=== PATIENT | male | born 1960 | race Two or more races ===

== ENCOUNTER 2020-12-07 14:00 | Inpatient (IN) | payer BC, MEDICAID ==
[~2020-12-07] VITALS: Ht 172.7 cm; Wt 95.3 kg
[2020-12-07] MEDS ORDERED: CEFTRIAXONE 1 G in IV DEXTROSE 5% 50 ML IV ONE (15:00)
[2020-12-07] MEDS ORDERED: ACETAMINOPHEN ES 500 MG TABLET PO ONE (15:00)
[2020-12-07] MEDS ORDERED: DEXAMETHASONE SOD PHOSPHATE 4 MG INJ IV ONE (15:00)
[2020-12-07] MEDS ORDERED: IV NORMAL SALINE 1000 ML BAG IV ONE (15:00)
[2020-12-07 15:21] LABS: HEMATOCRIT 38.4 % (36.7-47.1); MEAN CORPUSCULAR HEMOGLOBIN 35.1 uug (23.8-33.4); MEAN CORPUSCULAR VOLUME 100.3 fL (73.0-96.2); PLATELET COUNT (AUTO) 194 K/uL (152-348)
[2020-12-07] MEDS ORDERED: ACETAMINOPHEN 325 MG TABLET ONE (15:22)
[2020-12-07] MEDS ORDERED: DEXAMETHASONE SOD PHOSPHATE 10 MG INJ ONE (15:22)
[2020-12-07] MEDS ORDERED: CEFTRIAXONE /D5W 50ML IVPB **ER PYXIS IV ONE (15:22)
[2020-12-07 15:53] LABS: CREATININE 1.4 mg/dL (0.6-1.3); POTASSIUM 3.9 mmol/L (3.5-5.1)
[2020-12-07 15:59] LABS: BILIRUBIN,TOTAL 0.6 mg/dL (0.2-1.0); TOTAL PROTEIN, SERUM 8.2 g/dL (6.4-8.2)
[2020-12-07] MEDS ORDERED: ALBU0.63 IH (16:00)
[2020-12-07] MEDS ORDERED: PRED20TA PO (16:00)
[2020-12-07] MEDS ORDERED: MAGNESIUM HYDROXIDE 30 ML LIQUID UDC PO PRN (17:00)
[2020-12-07] MEDS ORDERED: Z GUARD REMEDY PASTE 57 GM TUBE TOP PRN (17:00)
[2020-12-07] MEDS ORDERED: ONDANSETRON 4 MG/2 ML VIAL IV PRN (17:00)
[2020-12-07] MEDS ORDERED: ALBUTEROL SULFATE 8 GM HFA.AER.AD IH PRN (17:00)
--- NOTE | 2020-12-07 17:30 | NUR ---
PT [facility].
[2020-12-07 18:02] LABS: *BILIRUBIN,URIN NEGATIVE (NEGATIVE); *BLOOD, URINE 2+ (NEGATIVE); *CLARITY,URINE CLEAR (CLEAR); *COLOR,URINE YELLOW (YELLOW); *KETONES,URINE NEGATIVE (NEGATIVE); *UROBILINOGEN,URINE 0.2 E.U./dl (NORMAL); LEUKOCYTE ESTERASE ,URINE NEGATIVE (NEGATIVE); NITRITE, URINE NEGATIVE (NEGATIVE); UGLUCOSE NEGATIVE (NEGATIVE)
[2020-12-07 18:05] LABS: BACTERIA,URINE NONE SEEN /HPF (NONE SEEN)
[2020-12-07 18:06] LABS: SQUAMOUS EPITHELIAL CELL,UR FEW /HPF (NONE SEEN)
--- NOTE | 2020-12-07 20:14 | NUR ---
Called up to give report, floor is busy will call back.
[2020-12-07 21:20] VITALS: BP 125/77
[2020-12-07] MEDS: ACETAMINOPHEN 325 MG TABLET PO PRN (22:04)
[2020-12-07] MEDS: ENOXAPARIN SODIUM 40 MG/0.4 ML DISP.SYRIN SQ SCH (22:05)
[2020-12-07] MEDS: ENSURE ENLIVE (VAN) 240 ML LIQUID PO SCH (22:10)
[2020-12-08 04:45] VITALS: BP 137/76
--- NOTE | 2020-12-08 04:46 | NUR ---
Admitted to room 322; admission procedures done; pt will have Remdesivir today; Patient rested well in between care; VSS; Tylenol given last night; safety maintained; afebrile at this akila; needs attended; continue to monitor; continue plan of care.
[2020-12-08 06:49] LABS: HEMATOCRIT 37.7 % (36.7-47.1); MEAN CORPUSCULAR VOLUME 101.6 fL (73.0-96.2); PLATELET COUNT (AUTO) 188 K/uL (152-348)
[2020-12-08 07:13] LABS: CREATININE 1.1 mg/dL (0.6-1.3); POTASSIUM 4.2 mmol/L (3.5-5.1)
[2020-12-08] MEDS: ACETAMINOPHEN 325 MG TABLET PO PRN ×2 (07:16→20:25)
[2020-12-08] MEDS: ENSURE ENLIVE (VAN) 240 ML LIQUID PO SCH ×3 (08:38→17:38)
[2020-12-08] MEDS ORDERED: DEXAMETHASONE SOD PHOSPHATE 4 MG INJ IV SCH (09:00)
[2020-12-08 09:03] VITALS: BP 96/50
--- NOTE | 2020-12-08 09:53 | NUR ---
Received patient resting quietly in his assigned bed. Bed is in low and locked position. Patient is alert and oriented, cooperative, and complaint. Patient is receiving 5 L oxygen via NC, saturating at 96%. Patient took off his NC because he stated it was bothering him, and oxygen saturation dropped to 91%. Patient instructed to keep nasal cannula on to prevent sudden drops in oxygen saturation, verbalizes understanding. Patient denies productive cough, chest pain, SOB, and dyspnea. Respirations are even and unlabored, no respiratory distress noted. Patient is complaint with medication, no adverse reaction. Patient noted with normal SR on the tele monitor. Patient is able to perform self care and ADL's independently. Able to tolerate food and fluids, patient reports good appetite. Denies pain or discomfort. Denies nausea, headache, vomiting. Patient provided with urinal to void. Denies hematuria.
[2020-12-08 12:00] VITALS: BP 112/67
[2020-12-08] MEDS ORDERED: REMDESIVIR (CHARGED) 200 MG in IV NORMAL SALINE 210 ML IV ONE (12:00)
[2020-12-08] MEDS: ASPIRIN 81 MG TAB.CHEW PO SCH (12:23)
[2020-12-08] MEDS ORDERED: CEFTRIAXONE 1 G in IV DEXTROSE 5% 50 ML IV SCH (15:00)
[2020-12-08 16:00] VITALS: BP 116/65
--- NOTE | 2020-12-08 16:28 | NUR ---
Patient reported that after receiving the IV Remdesevir he feels hot. IV Remdesevir disconnected from patient and temperature taken. Temperature is 98.1 oral. Patient is alert and oriented. Patient refusing IV Rocephin, he states he would rather not receive the medication incase he feels worse. Patient provided with education about possible side effects from medications, and he continues to refuse.
--- NOTE | 2020-12-08 20:00 | NUR ---
Received patient lying in bed. AAOx4. Denies any SOB. On O2 at 5LPM via NC in place. O2 sat at 93% on RA. Sinus tachy on tele with HR of 118/min. IV site on left AC intact and patent. Patient with temp of 102.4 orally. Cooling measure provided. Will give Tylenol 650mg PO as well. Needs assessed and attended to. COVID precaution initiated. Safety measure initiated and call workman within reached. Continue to monitor.
[2020-12-08] MEDS: ATORVASTATIN 20 MG TABLET PO SCH (20:25)
[2020-12-08] MEDS: ENOXAPARIN SODIUM 40 MG/0.4 ML DISP.SYRIN SQ SCH (20:26)
[2020-12-08 20:29] VITALS: BP 130/75
--- NOTE | 2020-12-09 | NUR ---
Latest temp 100.0 orally. Continue with cooling measures.
[2020-12-09 00:56] VITALS: BP 103/64
[2020-12-09] MEDS: ACETAMINOPHEN 325 MG TABLET PO PRN ×2 (02:16→12:22)
[2020-12-09 04:39] VITALS: BP 111/70
--- NOTE | 2020-12-09 06:00 | NUR ---
AAOx4. Denies any pain or SOB. On O2 at 5LPM via NC in place. O2 sat at 93% on RA. NSR on tele with HR of 73/min. IV site on left AC intact and patent. Was given Tylenol 650mg q6HR PRN for fever and effective. Cooling measures also provided. Now afebrile. Needs attended to and met. COVID precaution maintained. Safety measure maintained and call workman within reached.
[2020-12-09 07:29] LABS: HEMATOCRIT 39.8 % (36.7-47.1); MEAN CORPUSCULAR HEMOGLOBIN 34.9 uug (23.8-33.4); MEAN CORPUSCULAR VOLUME 101.5 fL (73.0-96.2); PLATELET COUNT (AUTO) 215 K/uL (152-348)
[2020-12-09 07:54] LABS: BILIRUBIN,DIRECT 0.3 mg/dL (0.0-0.2); CREATININE 1.2 mg/dL (0.6-1.3); POTASSIUM 3.9 mmol/L (3.5-5.1); TOTAL PROTEIN, SERUM 8.3 g/dL (6.4-8.2)
[2020-12-09 08:00] VITALS: BP 103/63
[2020-12-09] MEDS: ASPIRIN 81 MG TAB.CHEW PO SCH (09:38)
[2020-12-09] MEDS: ENSURE ENLIVE (VAN) 240 ML LIQUID PO SCH ×3 (09:39→17:18)
[2020-12-09] MEDS: DEXAMETHASONE SOD PHOSPHATE 4 MG INJ IV SCH ×3 (09:39→21:01)
[2020-12-09 12:00] VITALS: BP 121/77
[2020-12-09] MEDS: CEFEPIME HCL 1 G in IV DEXTROSE 5% 50 ML IV SCH ×3 (12:20→20:16)
[2020-12-09] MEDS: REMDESIVIR (CHARGED) 100 MG in IV NORMAL SALINE 100 ML IV SCH (12:20)
[2020-12-09] MEDS: DOXYCYCLINE HYCLATE IV 100 MG in IV DEXTROSE 5% 100 ML IV SCH ×2 (12:21→23:02)
[2020-12-09] MEDS ORDERED: IV NS 1000 ML 1,000 ML IV ONE (15:30)
--- NOTE | 2020-12-09 19:30 | NUR ---
Received patient sitting upright in bed. AAOx4. Denies any pain or SOB. On O2 at 5LPM via NC in place. O2 sat at 90%. NSR on tele with HR of 89/min. IV site on left AC noted leaking/ started new IV on left hand #[id number]. Afebrile at this time. Needs assessed and attended to. COVID precaution initiated. Safety measure initiated and call workman within reached. Continue to monitor.
[2020-12-09] MEDS: ENOXAPARIN SODIUM 40 MG/0.4 ML DISP.SYRIN SQ SCH (20:16)
[2020-12-09] MEDS: ATORVASTATIN 20 MG TABLET PO SCH (20:16)
[2020-12-09 21:09] VITALS: BP 109/70
--- NOTE | 2020-12-09 23:22 | NUR ---
Patient complained of mild SOB. On 5LPM via NC of O2, O2 sat fluctuating bet 87-89%. Titrated O2 at 6LPM via NC. O2 sat fluctuating between 89-91%. Patient felt relief. HOB kept elevated. Informed RT Dez.
[2020-12-10 00:52] VITALS: BP 116/66
[2020-12-10] MEDS: CEFEPIME HCL 1 G in IV DEXTROSE 5% 50 ML IV SCH ×3 (04:43→20:21)
[2020-12-10] MEDS: DEXAMETHASONE SOD PHOSPHATE 4 MG INJ IV SCH ×3 (05:01→21:04)
--- NOTE | 2020-12-10 06:43 | NUR ---
AAOx4. No complain of any pain or SOB. On O2 at 6LPM via NC in place. O2 sat at 90%. Sinus zoltan on tele with HR of 59/min. IV site on left hand intact and patent NO adverse reaction noted from IV antibiotics. Needs attended to and met. COVID precaution maintained. Safety measure maintained and call workman within reached.
[2020-12-10 07:05] LABS: HEMATOCRIT 38.3 % (36.7-47.1); MEAN CORPUSCULAR HEMOGLOBIN 34.6 uug (23.8-33.4); MEAN CORPUSCULAR VOLUME 103.3 fL (73.0-96.2); PLATELET COUNT (AUTO) 214 K/uL (152-348)
[2020-12-10 08:14] LABS: BILIRUBIN,DIRECT 0.2 mg/dL (0.0-0.2); BILIRUBIN,TOTAL 0.7 mg/dL (0.2-1.0); POTASSIUM 4.3 mmol/L (3.5-5.1); TOTAL PROTEIN, SERUM 7.4 g/dL (6.4-8.2)
[2020-12-10 09:00] VITALS: BP 104/54
[2020-12-10] MEDS: ENSURE ENLIVE (VAN) 240 ML LIQUID PO SCH ×3 (09:19→17:00)
[2020-12-10] MEDS: ASPIRIN 81 MG TAB.CHEW PO SCH (09:20)
[2020-12-10] MEDS: DOXYCYCLINE HYCLATE IV 100 MG in IV DEXTROSE 5% 100 ML IV SCH ×2 (11:57→23:00)
[2020-12-10 12:00] VITALS: BP 115/78
[2020-12-10] MEDS: REMDESIVIR (CHARGED) 100 MG in IV NORMAL SALINE 100 ML IV SCH (12:46)
[2020-12-10 17:12] VITALS: BP 116/58
--- NOTE | 2020-12-10 19:30 | NUR ---
Received patient sitting upright in bed. AAOx4. Denies any pain or SOB at this time. On O2 at 6LPM via NC in place. O2 sat at 96%. NSR on tele with HR of 76/min. IV site on left hand intact and patent. Afebrile. Needs assessed and attended to. COVID precaution initiated. Safety measure initiated and call workman within reached. Continue to monitor.
[2020-12-10] MEDS: ATORVASTATIN 20 MG TABLET PO SCH (20:21)
[2020-12-10] MEDS: ENOXAPARIN SODIUM 40 MG/0.4 ML DISP.SYRIN SQ SCH (20:21)
[2020-12-10 20:30] VITALS: BP 103/45
[2020-12-11 00:19] VITALS: BP 107/52
[2020-12-11 04:20] VITALS: BP 147/73
[2020-12-11] MEDS: CEFEPIME HCL 1 G in IV DEXTROSE 5% 50 ML IV SCH ×3 (04:27→20:37)
[2020-12-11] MEDS: DEXAMETHASONE SOD PHOSPHATE 4 MG INJ IV SCH ×3 (05:53→21:12)
--- NOTE | 2020-12-11 06:26 | NUR ---
AAOx4. Denies any pain or SOB at this time. On O2 at 6LPM via NC in place. O2 sat at 99%. Sinus zoltan on tele with HR of 55/min. IV site on left hand intact and patent. NO side effect noted from IV antibiotics. Needs attended to and met. COVID precaution maintained. Safety measure maintained and call workman within reached.
[2020-12-11 07:35] LABS: MEAN CORPUSCULAR HEMOGLOBIN 34.4 uug (23.8-33.4); MEAN CORPUSCULAR VOLUME 101.6 fL (73.0-96.2); PLATELET COUNT (AUTO) 297 K/uL (152-348)
[2020-12-11] MEDS: ASPIRIN 81 MG TAB.CHEW PO SCH (08:09)
[2020-12-11] MEDS: ENSURE ENLIVE (VAN) 240 ML LIQUID PO SCH ×3 (08:09→16:38)
[2020-12-11 08:33] LABS: BILIRUBIN,DIRECT 0.2 mg/dL (0.0-0.2); BILIRUBIN,TOTAL 0.7 mg/dL (0.2-1.0); POTASSIUM 4.4 mmol/L (3.5-5.1); TOTAL PROTEIN, SERUM 7.5 g/dL (6.4-8.2)
[2020-12-11] MEDS: REMDESIVIR (CHARGED) 100 MG in IV NORMAL SALINE 100 ML IV SCH (11:45)
[2020-12-11 12:00] VITALS: BP 113/65
[2020-12-11] MEDS: DOXYCYCLINE HYCLATE IV 100 MG in IV DEXTROSE 5% 100 ML IV SCH ×2 (13:02→23:08)
[2020-12-11 16:00] VITALS: BP 105/66
--- NOTE | 2020-12-11 20:23 | NUR ---
Patient AAOx4. On O2 at 6LPM via NC in place.SAting well. No s/ of distress noted.Sinus zoltan on tele with HR of 58/min. Patient c/o pain on IV site on left hand .Noted infiltrated.Removed and inserted new line on left wrist using 22 g .Tolerated well .Infused IV ATb as ordered .No a/r noted.COVID precaution maintained.Call workman within reached.
[2020-12-11] MEDS: ATORVASTATIN 20 MG TABLET PO SCH (20:37)
[2020-12-11 20:49] VITALS: BP 114/64
[2020-12-11] MEDS: ENOXAPARIN SODIUM 40 MG/0.4 ML DISP.SYRIN SQ SCH (21:17)
[2020-12-12] VITALS (7 sets, daily range): BP systolic 105–130; BP diastolic 62–69
--- NOTE | 2020-12-12 02:01 | NUR ---
Patient awake sitting upright in bed not in distress but c/o nasal congestion.O2 at 6LPM via NC at 95%.Humidier applied with relief.No coughing at this time.Denies SOB.HOB elevated. Afebrile.Will continue to monitor.
[2020-12-12] MEDS: CEFEPIME HCL 1 G in IV DEXTROSE 5% 50 ML IV SCH ×3 (04:58→20:22)
[2020-12-12] MEDS: DEXAMETHASONE SOD PHOSPHATE 4 MG INJ IV SCH ×3 (05:37→21:10)
--- NOTE | 2020-12-12 06:12 | NUR ---
Patient noted O2 sat went to 87-89 % no used of accessory muscles of respiration .Placed patient to non breather mask at 14 LPM sating at 95 % still with episodes of nasal congestion.towboat operator made aware of patient complaints regarding nasal congestion. Will continue to monitor.HOB remained elevated. Reminded patient to used call light for assistance.
--- NOTE | 2020-12-12 07:01 | NUR ---
Patient slept intermittently on non breather mask at 14 LPM 94%- 95 % .NSr on tele.Iv on left wrist patent and intact. VSS .All needs anticipated and met accordingly. will endorse to oncoming shift.
--- NOTE | 2020-12-12 08:00 | NUR ---
received change of shift report on patient. pt a/ox4, c/o SOB, on 14L nonrebreather saturating at 94%, no signs of distress, no reports of pain at this time. pt BRP, voiding via urinal at bedside. IV on the left wrist 22g, patent and intact. pt unvaccinated, cxr shows bifocal pulmonary infiltrates. will continue with plan of care.
[2020-12-12 08:26] LABS: HEMATOCRIT 39.2 % (36.7-47.1); PLATELET COUNT (AUTO) 349 K/uL (152-348)
[2020-12-12 08:40] LABS: BILIRUBIN,DIRECT 0.3 mg/dL (0.0-0.2); BILIRUBIN,TOTAL 0.7 mg/dL (0.2-1.0); POTASSIUM 4.2 mmol/L (3.5-5.1); TOTAL PROTEIN, SERUM 7.8 g/dL (6.4-8.2)
[2020-12-12] MEDS: ENSURE ENLIVE (VAN) 240 ML LIQUID PO SCH ×3 (08:53→17:52)
[2020-12-12] MEDS: ASPIRIN 81 MG TAB.CHEW PO SCH (08:53)
[2020-12-12] MEDS: DOXYCYCLINE HYCLATE IV 100 MG in IV DEXTROSE 5% 100 ML IV SCH ×2 (11:02→23:16)
--- NOTE | 2020-12-12 12:00 | NUR ---
ocean nasal spray ordered for pt for nasal congestion.
[2020-12-12] MEDS: REMDESIVIR (CHARGED) 100 MG in IV NORMAL SALINE 100 ML IV SCH (12:42)
[2020-12-12] MEDS: NORMAL SALINE NASAL 45 ML BOTTLE NS PRN ×2 (12:44→23:37)
[2020-12-12] MEDS ORDERED: TOCILIZUMAB 800 MG in IV NORMAL SALINE 60 ML IV ONE ×2 (13:00→14:00)
--- NOTE | 2020-12-12 13:30 | NUR ---
pt started on actemra, pt on 14L nonrebreather saturating at 94%. see by Dr. Hall.
--- NOTE | 2020-12-12 18:54 | NUR ---
pt in bed resting, a/ox4, pt NSR on tele monitor, nonrebreather at 14L saturating at 92%. pt BRP, voiding via urinal. completed course of remdesivir 05/16, started on Actemra, will endorse to oncoming nurse.
--- NOTE | 2020-12-12 20:14 | NUR ---
Patient in bed. A/ox4, NSR on tele monitor, c/o SOB on nonrebreather at 14L saturating at 96%.Noted with little of anxiety.Re-assurance rendered.s/p Actemra,No a/r noted. N.p Nera seen and patient.Adm med. and IV ATB as ordered. IV patent and intact on left hand. Call light with in reach.
[2020-12-12] MEDS: ATORVASTATIN 20 MG TABLET PO SCH (20:22)
[2020-12-12] MEDS: ENOXAPARIN SODIUM 40 MG/0.4 ML DISP.SYRIN SQ SCH (20:24)
[2020-12-13 04:27] VITALS: BP 109/61
[2020-12-13] MEDS: CEFEPIME HCL 1 G in IV DEXTROSE 5% 50 ML IV SCH ×3 (04:59→20:23)
[2020-12-13] MEDS: DEXAMETHASONE SOD PHOSPHATE 4 MG INJ IV SCH ×3 (05:01→22:01)
[2020-12-13 06:54] LABS: HEMATOCRIT 39.7 % (36.7-47.1); MEAN CORPUSCULAR HEMOGLOBIN 34.6 uug (23.8-33.4); MEAN CORPUSCULAR VOLUME 101.3 fL (73.0-96.2); PLATELET COUNT (AUTO) 358 K/uL (152-348); POTASSIUM 4.6 mmol/L (3.5-5.1)
[2020-12-13 09:00] VITALS: BP 124/64
[2020-12-13] MEDS: ASPIRIN 81 MG TAB.CHEW PO SCH (10:08)
[2020-12-13] MEDS: ENSURE ENLIVE (VAN) 240 ML LIQUID PO SCH ×3 (10:09→17:30)
[2020-12-13 11:30] VITALS: BP 124/64
[2020-12-13] MEDS: DOXYCYCLINE HYCLATE IV 100 MG in IV DEXTROSE 5% 100 ML IV SCH (11:40)
[2020-12-13 15:23] VITALS: BP 127/71
--- NOTE | 2020-12-13 18:35 | NUR ---
Pt stable throughout the shift. NSR on tele monitor. C/o nasal stuffiness, but nasal spray is on the bedside available PRN. Pt states its not helping it. MD aware. Pt can ambulate to the room without any distress. Safety measures in place. Fall and isolation precaution maintained. Continue with abx, cardiac and respiratory monitoring. Will endorse to warehouse worker 2nd shift nurse.
[2020-12-13] MEDS: ATORVASTATIN 20 MG TABLET PO SCH (20:23)
[2020-12-13] MEDS: ENOXAPARIN SODIUM 40 MG/0.4 ML DISP.SYRIN SQ SCH (20:27)
[2020-12-13 20:30] VITALS: BP 102/66
--- NOTE | 2020-12-13 21:15 | NUR ---
Patient stated he has has severe nasal congestion for several days no and nobody had been able to resolve it. Nasal spray has been ineffective. Steam has been ineffective. Inspected the patient's nasal passages, noted thick mucous occluding the nasal passages. Attempted suctioning with a Yankauer, but the mucous was too thick. I then irrigated both nasal passages with saline flushes, which had an immediate effect and the patient was able to blow his nose expelling a large amount of dark brown thick mucous. Irrigation repeated several times until he stated his nose was clear. patient felt immediate relief and was able to breath much easier. Patient did not even feel the need to use the non-rebreather anymore. Placed back on the nasal cannula with O2 SAT remaining 99% on 6L.
--- NOTE | 2020-12-13 21:20 | NUR ---
Received patient A/O x4, c/o slight SOB stating his nasal passages are occluded making it more difficult to breathe, on 15L nonrebreather saturating at 94%, no signs of distress, no reports of pain at this time. Patient on bathroom privileges but has bedside commode for convenience and ease, voiding via urinal at bedside. IV on the left wrist 22g, patent and intact.
--- NOTE | 2020-12-13 22:41 | NUR ---
Patient sleeping well, remains on 6L via nasal cannula, SAT 99%
[2020-12-14] MEDS: DOXYCYCLINE HYCLATE IV 100 MG in IV DEXTROSE 5% 100 ML IV SCH ×3 (00:02→23:33)
[2020-12-14 00:08] VITALS: BP 90/47
[2020-12-14 04:27] VITALS: BP 97/55
[2020-12-14] MEDS: CEFEPIME HCL 1 G in IV DEXTROSE 5% 50 ML IV SCH ×3 (05:12→21:51)
[2020-12-14] MEDS: DEXAMETHASONE SOD PHOSPHATE 4 MG INJ IV SCH ×3 (05:12→21:52)
--- NOTE | 2020-12-14 06:23 | NUR ---
Patient remains in stable condition, A/O x3. Patient remains SR on the monitor, BP stable, remains on 6L nasal cannula, o2 saturation monitored frequently 95-99% throughout the shift, no SOB or signs of distress. Patient's nasal congestion resolved, using 10mL saline flushes to soften mucous to make it easier to expel. The saline nasal spray was insufficient in loosening up the mucous clogging his nasal passages. Patient was able to sleep very well. IV in the left wrist did infiltrate during the night causing marked edema in the forearm and hand, no discoloration noted. New IV was placed in the right AC.
[2020-12-14 07:40] LABS: HEMATOCRIT 42.6 % (36.7-47.1); MEAN CORPUSCULAR HEMOGLOBIN 34.2 uug (23.8-33.4); MEAN CORPUSCULAR VOLUME 101.8 fL (73.0-96.2); PLATELET COUNT (AUTO) 371 K/uL (152-348)
--- NOTE | 2020-12-14 08:00 | NUR ---
PATIENT AWAKE ALERT AND ORIENTED X3 WITH SLIGHT SOB ON EXERTION WITH 6L O2 VIA NC SATURATING 86-87 % SITTING UP ON SIDE OF BED. SR ON MONITOR
[2020-12-14] MEDS: ASPIRIN 81 MG TAB.CHEW PO SCH (08:10)
[2020-12-14] MEDS: ENSURE ENLIVE (VAN) 240 ML LIQUID PO SCH ×3 (08:10→17:14)
[2020-12-14 08:34] LABS: BILIRUBIN,DIRECT 0.3 mg/dL (0.0-0.2); MAGNESIUM 2.8 mg/dL (1.8-2.4); PHOSPHOROUS 3.6 mg/dL (2.5-4.9); POTASSIUM 4.5 mmol/L (3.5-5.1); TOTAL PROTEIN, SERUM 7.8 g/dL (6.4-8.2)
[2020-12-14 09:58] LABS: ABG BASE EXCESS 0.3 mmol/L; ABG HCO3 21.9 mmol/L; ABG PCO2 28.1 mmHg (35.0-45.0); ABG PO2 54.6 mmHg (75.0-100.0); ABG SITE RIGHT RADIAL; ABG TOTAL HEMOGLOBIN 15.6 G/dL (13.5-18.0); COHb 0.8 % (0.5-1.5); MetHb 0.2 % (0.0-1.5); O2Hb 87.7 % (94.0-97.0); VENT MODE Nasal Cannula
--- NOTE | 2020-12-14 11:00 | NUR ---
SEEN BY DR SOLOMON FOR PULMO FOLLOW-UP. RECOMMEND TITRATION OF O2 TOLERATED. ABG DONE WITH RESULTS RELAYED TO DR SOLOMON.
[2020-12-14 12:00] VITALS: BP 112/73
[2020-12-14 16:00] VITALS: BP 123/63
--- NOTE | 2020-12-14 19:20 | NUR ---
Received shift report, patient in bed with 6L NC humidifier on. Sinus bradycardia on telemonitor. IV intact and patent. Patient denies any pain or discomfort. Will continue to monitor.
[2020-12-14 20:28] VITALS: BP 116/20
[2020-12-14] MEDS: ATORVASTATIN 20 MG TABLET PO SCH (21:51)
[2020-12-14] MEDS: ENOXAPARIN SODIUM 40 MG/0.4 ML DISP.SYRIN SQ SCH (21:56)
[2020-12-15 00:15] VITALS: BP 120/75
[2020-12-15 04:56] VITALS: BP 121/55
[2020-12-15] MEDS: DEXAMETHASONE SOD PHOSPHATE 4 MG INJ IV SCH ×3 (05:22→21:57)
[2020-12-15] MEDS: CEFEPIME HCL 1 G in IV DEXTROSE 5% 50 ML IV SCH (05:23)
--- NOTE | 2020-12-15 06:11 | NUR ---
Patient resting on 6L NC humidifier on. Patient IV dislodged. New IV inserted on right hand 22g. Patient compliant with medications and care, no signs of acute distress. Call lights within reach, bed alarm on, and bed locked in lowest position. Will endorse to incoming shift.
[2020-12-15 08:33] LABS: HEMATOCRIT 42.6 % (36.7-47.1); MEAN CORPUSCULAR HEMOGLOBIN 34.7 uug (23.8-33.4); MEAN CORPUSCULAR VOLUME 101.1 fL (73.0-96.2); PLATELET COUNT (AUTO) 365 K/uL (152-348)
[2020-12-15 08:59] LABS: THYROID STIMULATING HORMONE 0.445 mIU/mL (0.358-3.740)
[2020-12-15] MEDS: ENSURE ENLIVE (VAN) 240 ML LIQUID PO SCH ×2 (08:59→13:13)
[2020-12-15] MEDS: ASPIRIN 81 MG TAB.CHEW PO SCH (08:59)
[2020-12-15 09:15] LABS: CREATININE 0.9 mg/dL (0.6-1.3); MAGNESIUM 2.8 mg/dL (1.8-2.4); PHOSPHOROUS 3.7 mg/dL (2.5-4.9); POTASSIUM 4.6 mmol/L (3.5-5.1); TOTAL PROTEIN, SERUM 7.7 g/dL (6.4-8.2)
--- NOTE | 2020-12-15 09:28 | NUR ---
received pt in bed awake and oriented x4 and seems a bit upset about his condition. received on 10 lpm simple facemask resting in bed. denies sob/difficulty breathing o2 sat 94-95% but noted with sob on exertion. at this time dr davies rounding and updated on condition. will cont to monitor. safety measures in place.
[2020-12-15 11:30] VITALS: BP 112/50
[2020-12-15 16:11] VITALS: BP 120/58
--- NOTE | 2020-12-15 19:00 | NUR ---
remains on 4 Lpm facemask. sob on exertion noted. needs attended. safety measures in place. kept comfortable.
[2020-12-15] MEDS ORDERED: ALPRAZOLAM 0.5 MG TABLET PO PRN (20:15)
--- NOTE | 2020-12-15 20:16 | NUR ---
Received patient in bed AALox4. On 10 LPM via simple facemask sating 97% .Patient stated he feels comfortable on 10 LPM.BRp and able to urinal. voided well.Iv on right hand 22 g patent and intact.Continue on Decadron IVP as ordered.Continue on covid isolation.
[2020-12-15 20:22] VITALS: BP 119/70
[2020-12-15] MEDS: ATORVASTATIN 20 MG TABLET PO SCH (20:46)
[2020-12-15] MEDS: ENOXAPARIN SODIUM 40 MG/0.4 ML DISP.SYRIN SQ SCH (21:28)
[2020-12-15 21:29] LABS: COCCIDIOIDES CF SERUM Negative
[2020-12-15 21:30] LABS: CRYPTOCOCCUS AB, SERUM Negative
[2020-12-16 00:10] VITALS: BP 115/75
[2020-12-16 04:20] VITALS: BP 130/70
[2020-12-16] MEDS: DEXAMETHASONE SOD PHOSPHATE 4 MG INJ IV SCH ×3 (05:34→21:03)
[2020-12-16] MEDS: GLUCERNA SHAKE VANILLA 237 ML CAN PO SCH (08:15)
[2020-12-16] MEDS: ASPIRIN 81 MG TAB.CHEW PO SCH (08:15)
[2020-12-16 09:37] LABS: HEMATOCRIT 44.5 % (36.7-47.1); MEAN CORPUSCULAR HEMOGLOBIN 34.3 uug (23.8-33.4); MEAN CORPUSCULAR VOLUME 100.6 fL (73.0-96.2); PLATELET COUNT (AUTO) 357 K/uL (152-348)
[2020-12-16 09:39] LABS: CREATININE 0.9 mg/dL (0.6-1.3); MAGNESIUM 2.6 mg/dL (1.8-2.4); PHOSPHOROUS 3.8 mg/dL (2.5-4.9); POTASSIUM 4.4 mmol/L (3.5-5.1)
[2020-12-16 12:00] VITALS: BP 120/74
[2020-12-16 16:00] VITALS: BP 122/71
[2020-12-16 20:00] VITALS: BP 121/61
[2020-12-16] MEDS: ATORVASTATIN 20 MG TABLET PO SCH (20:21)
[2020-12-16] MEDS: ENOXAPARIN SODIUM 40 MG/0.4 ML DISP.SYRIN SQ SCH (21:03)
[2020-12-17 00:06] VITALS: BP 112/59
[2020-12-17 04:00] VITALS: BP 119/61
--- NOTE | 2020-12-17 06:09 | NUR ---
Pt slept throughout the night. Able to make needs known. Pt is somewhat anxious, controlled with Xanax. On 10L simple mask, tolerating well. Sinus rhythm on monitor. IV site intact. No other issues or concerns at this time, will endorse to day shift.
[2020-12-17 06:23] LABS: HEMATOCRIT 45.5 % (36.7-47.1); MEAN CORPUSCULAR HEMOGLOBIN 34.7 uug (23.8-33.4); PLATELET COUNT (AUTO) 303 K/uL (152-348)
[2020-12-17] MEDS: DEXAMETHASONE SOD PHOSPHATE 4 MG INJ IV SCH ×3 (06:33→22:04)
[2020-12-17 07:02] LABS: BILIRUBIN,TOTAL 0.7 mg/dL (0.2-1.0); MAGNESIUM 2.6 mg/dL (1.8-2.4); PHOSPHOROUS 4.2 mg/dL (2.5-4.9); POTASSIUM 4.8 mmol/L (3.5-5.1); TOTAL PROTEIN, SERUM 7.2 g/dL (6.4-8.2)
[2020-12-17] MEDS: GLUCERNA SHAKE VANILLA 237 ML CAN PO SCH (08:08)
[2020-12-17] MEDS: ASPIRIN 81 MG TAB.CHEW PO SCH (08:08)
--- NOTE | 2020-12-17 09:30 | NUR ---
received pt in bed awake and oriented x4 and seems a bit upset about his condition. received on 10 l simple face mask resting in bed.. at this time dr davies rounding and updated on condition. will cont to monitor. safety measures in place.
[2020-12-17] MEDS ORDERED: ALPRAZOLAM 0.5 MG TABLET PO PRN (11:00)
[2020-12-17 11:12] VITALS: BP 113/68
[2020-12-17] MEDS: CHOLECALCIFEROL 1,000 UNIT TABLET PO SCH (11:15)
[2020-12-17] MEDS: ASCORBIC ACID 500 MG TABLET PO SCH (11:15)
[2020-12-17 11:45] VITALS: BP 113/68
--- NOTE | 2020-12-17 15:21 | NUR ---
pt is feeling sob rt notified put the pt on non rebreather at 15 l made aware
[2020-12-17 16:23] VITALS: BP 105/80
[2020-12-17] MEDS: ATORVASTATIN 20 MG TABLET PO SCH (20:09)
[2020-12-17 20:30] VITALS: BP 140/85
[2020-12-17] MEDS: ENOXAPARIN SODIUM 40 MG/0.4 ML DISP.SYRIN SQ SCH (20:50)
[2020-12-18 00:25] VITALS: BP 124/63
[2020-12-18 04:35] VITALS: BP 123/76
--- NOTE | 2020-12-18 05:26 | NUR ---
Slept throughout the night. On 15L NRM, tolerating well satting at 95%. No distress noted. IV site intact. Pt able to make needs known. Educated on breathing exercises and relaxation techniques for anxiousness. No other issues or concerns at this time, will endorse to day shift.
[2020-12-18] MEDS: PANTOPRAZOLE SODIUM 40 MG TABLET.DR PO SCH (06:24)
[2020-12-18] MEDS: DEXAMETHASONE SOD PHOSPHATE 4 MG INJ IV SCH ×3 (06:25→14:28)
--- NOTE | 2020-12-18 09:00 | NUR ---
received pt from hourly shift RN. Pt is a/o x 4 no complaint of pain, just of lack of energy when he tries to move around. Pt vitals are stable this am saturating 95% on 15L nonrebreather, temp of 98.1, hr 84, bp 110/71. Pt is sitting up in bed, flushed his nose with saline to clear out, no BM yet. Comfort measures provided, call light in reach. Will continue to monitor pt.
[2020-12-18 09:30] VITALS: BP 110/84
[2020-12-18] MEDS: ASCORBIC ACID 500 MG TABLET PO SCH (09:34)
[2020-12-18] MEDS: ASPIRIN 81 MG TAB.CHEW PO SCH (09:34)
[2020-12-18] MEDS: CHOLECALCIFEROL 1,000 UNIT TABLET PO SCH (09:34)
[2020-12-18 12:04] VITALS: BP 123/68
[2020-12-18 16:27] VITALS: BP 132/65
[2020-12-18] MEDS: DEXAMETHASONE 4 MG TABLET PO SCH (16:38)
--- NOTE | 2020-12-18 18:32 | NUR ---
Pt no longer has IV access, pt's Iv was leaking around 1430, he refused to let me reinsert another IV, I suggested we can order a midline if an IV is necessary but after speaking with MD, IV medications were switched to PO and pt no longer requires an IV. Pt is a/o x 4. no complaint of pain or acute distress. Pt still has not had a BM, provided milk of magnesia at 1800. Comfort measures provided, call light in reach. Will endorse pt to ordnance officer.
[2020-12-18 19:54] VITALS: BP 111/74
--- NOTE | 2020-12-18 20:00 | NUR ---
RECEIVED PATIENT AWAKE IN BED. A/O X4. DENIES PAIN. ON 15L NON-REBREATHER MASK SATING 95%. VS WNL. NO HEPLOCK NOTED, [facility] THAT PATIENT REFUSED IV INSERTION EARLIER AND BOTH DR. HINKLE AND DR. SOLOMON WERE NOTIFIED. ON TELE SR. PATIENT GETS VERY EXERTED AND SOB WITH ACTIVITY. NO RESP. DISTRESS NOTED. REMAINED ON ISOLATION FOR COVID POSITIVE. CALL LIGHT IN REACH. ALL NEEDS ATTENDED. WILL CONTINUE TO MONITOR AND ASSESS.
[2020-12-18] MEDS: ENOXAPARIN SODIUM 40 MG/0.4 ML DISP.SYRIN SQ SCH (20:10)
[2020-12-18] MEDS: ATORVASTATIN 20 MG TABLET PO SCH (20:10)
[2020-12-19] MEDS: DEXAMETHASONE 4 MG TABLET PO SCH ×4 (00:08→21:32)
[2020-12-19 00:35] VITALS: BP 133/68
[2020-12-19 05:10] VITALS: BP 141/77
[2020-12-19] MEDS: PANTOPRAZOLE SODIUM 40 MG TABLET.DR PO SCH (06:03)
[2020-12-19 08:08] LABS: MEAN CORPUSCULAR HEMOGLOBIN 34.4 uug (23.8-33.4); MEAN CORPUSCULAR VOLUME 101.4 fL (73.0-96.2); PLATELET COUNT (AUTO) 236 K/uL (152-348)
[2020-12-19] MEDS: ASCORBIC ACID 500 MG TABLET PO SCH (08:13)
[2020-12-19] MEDS: ASPIRIN 81 MG TAB.CHEW PO SCH (08:13)
[2020-12-19] MEDS: CHOLECALCIFEROL 1,000 UNIT TABLET PO SCH (08:13)
[2020-12-19 08:38] LABS: CREATININE 0.8 mg/dL (0.6-1.3); MAGNESIUM 2.8 mg/dL (1.8-2.4); PHOSPHOROUS 3.6 mg/dL (2.5-4.9); POTASSIUM 4.6 mmol/L (3.5-5.1)
[2020-12-19 12:00] VITALS: BP 122/76
--- NOTE | 2020-12-19 12:14 | NUR ---
received report from Dr Villarreal of lab, patient has Left pneumothorax, reported to Dr Leija and Dr Hall. Dr Hall order chest tube insertion. will continue to monitor.
--- NOTE | 2020-12-19 13:00 | NUR ---
Dr Leija and Dr Hall made aware, per radiology Dr Charles is the web content specialist md for interventional radiology.
--- NOTE | 2020-12-19 14:00 | NUR ---
Dr Mcdaniel stated Dr Lamb will do the procedure, consents signed by the patient and agreeable to the plan.
--- NOTE | 2020-12-19 15:30 | NUR ---
Assisted Dr Lamb at bedside for chest tube insertion. patient tolerated the procedure well. Reported pain on the incision site but refused to take medication. MD ordered stat xray s/p procedure. Kept on his comfortable position. saturating at 88-90% on 15L nonrebreather, 6L o2. 20cm is connected to wall suction. will continue to monitor.
[2020-12-19 16:00] VITALS: BP_SYST 135; BP_SYST 139; BP_DIAS 80; BP_DIAS 90
[2020-12-19 17:20] LABS: ABG BASE EXCESS 1.3 mmol/L; ABG HCO3 23.2 mmol/L; ABG PCO2 30.1 mmHg (35.0-45.0); ABG PH 7.505 (7.350-7.450); ABG PO2 73.2 mmHg (75.0-100.0); ABG SITE RIGHT RADIAL; ABG TOTAL HEMOGLOBIN 16.6 G/dL (13.5-18.0); COHb 0.7 % (0.5-1.5); MetHb 0.2 % (0.0-1.5); O2Hb 94.7 % (94.0-97.0)
--- NOTE | 2020-12-19 18:05 | NUR ---
MS ordered ABG and transfer to CCU. Will continue to monitor. and frequent checks done.
--- NOTE | 2020-12-19 19:30 | NUR ---
transferred patient to CCU. report given to Max for continuity of care.
[2020-12-19 20:00] VITALS: BP 109/81
[2020-12-19 21:00] VITALS: BP 124/78
[2020-12-19] MEDS: ENOXAPARIN SODIUM 40 MG/0.4 ML DISP.SYRIN SQ SCH (21:13)
[2020-12-19] MEDS ORDERED: DEXAMETHASONE 4 MG TABLET ONE ×2 (21:27→22:22)
[2020-12-19] MEDS: MORPHINE SULFATE 2 MG/1 ML DISP.SYRIN IV PRN (21:32)
--- NOTE | 2020-12-19 22:00 | NUR ---
Rec'd from 3rd floor to CCU#! @ 1930hrs. Alert & orient X4. NRM 15L; SaO2 88%. MidLine placed right upper arm. Dr Cruz @ bedside. Patient medicated / eMar / CT site pain. Patient talked to family via celfone. Addendum: 12/19/20 at 2230 by BILLIE CHAUDHARY RN Refuses Q!H B/P; only consents to B/P Q4H.
[2020-12-19] MEDS ORDERED: DEXAMETHASONE 1 MG TABLET ONE (22:21)
[2020-12-20] VITALS (12 sets, daily range): BP systolic 118–138; BP diastolic 70–85
[2020-12-20] MEDS: HYDROCODONE/APAP 5-325MG TABLET PO PRN ×3 (00:11→17:26)
[2020-12-20] MEDS: MORPHINE SULFATE 2 MG/1 ML DISP.SYRIN IV PRN (03:23)
[2020-12-20 05:03] LABS: HEMATOCRIT 44.1 % (36.7-47.1); MEAN CORPUSCULAR HEMOGLOBIN 34.1 uug (23.8-33.4); MEAN CORPUSCULAR VOLUME 101.2 fL (73.0-96.2); PLATELET COUNT (AUTO) 182 K/uL (152-348)
[2020-12-20 05:18] LABS: MAGNESIUM 2.4 mg/dL (1.8-2.4); PHOSPHOROUS 3.6 mg/dL (2.5-4.9)
[2020-12-20] MEDS: DEXAMETHASONE 4 MG TABLET PO SCH ×3 (05:57→21:09)
[2020-12-20] MEDS: PANTOPRAZOLE SODIUM 40 MG TABLET.DR PO SCH (06:03)
--- NOTE | 2020-12-20 07:40 | NUR ---
Report received from BRADLEY Santana. Care endorsed and on continuous monitoring.
[2020-12-20] MEDS: ASPIRIN 81 MG TAB.CHEW PO SCH (08:21)
[2020-12-20] MEDS: ASCORBIC ACID 500 MG TABLET PO SCH (08:22)
[2020-12-20] MEDS: CHOLECALCIFEROL 1,000 UNIT TABLET PO SCH (08:22)
--- NOTE | 2020-12-20 09:00 | NUR ---
Patient is alert and oriented x 4. Able to verbalize needs and demands for care. He requested to be in high rodriguez's position. Able to assist minimally with positioning. Right upper arm PICC line in place and flushed well. Kev's sister called and discussed his plan of care for the day. Discussed plans for care with Kev and breathng exercises as well. Vital signs stable. Patient's chest tube in place with no discharge or collection at this time. Patient continues to be on non-rebreather mask.
--- NOTE | 2020-12-20 09:45 | NUR ---
Dr. Hall at bedside and assessed patient. He discussed plans of care. Dr. Hall requested humidified oxygen delivery. Patient refused to change any setting at this time. Patient is complaining of short of breath. Chest tube placement examined and in good position. Denies any pain and discomfort at this time. Dr. Hall recommended to decrese suction to 20 cm - recalibrated suction with bubbles decreased at this time. Denies any changes in condition or experience; or respiratory quality.
--- NOTE | 2020-12-20 11:00 | NUR ---
Telemetry Rn requested to discuss dietary and nutritional plans with patient; and to make recommendations for supplemens as appropriate. Patient advised of nutritional needs to support body requirements. Patient took recommendations well.
[2020-12-20] MEDS: GLUCERNA SHAKE 237 ML CAN PO SCH ×2 (13:30→16:46)
--- NOTE | 2020-12-20 16:15 | NUR ---
Received report from BRADLEY LYNN. Patient is awake, eating, lying in high rodriguez's position, A/Ox4. Denies pain at this time. On NRB mask @ 15LPM oxygen. No signs of acute distress noted. Able to make needs known with assistance. Checked IV site BROOKE PICC line patent and flushed. With left chest tube in place @46enC1D pressure, no discharge or collection at this time. Dressing is dry and intact. Will continue to monitor closely. Addendum: 12/20/20 at 2315 by Belgica Pelletier RN Bed at lowest position, bed alarm on, siderailsx2. Call light within reach. Oral care done every 2 hours and PRN.
--- NOTE | 2020-12-20 21:00 | NUR ---
Patient's sister (Perla) called, report given.
[2020-12-20] MEDS: ENOXAPARIN SODIUM 40 MG/0.4 ML DISP.SYRIN SQ SCH (21:06)
--- NOTE | 2020-12-20 21:35 | NUR ---
Seen and examined by Bhavya GORMAN, with no new orders.
[2020-12-21] VITALS (24 sets, daily range): BP systolic 116–147; BP diastolic 52–107
[2020-12-21] MEDS ORDERED: IV NORMAL SALINE 500 ML IV PRN
--- NOTE | 2020-12-21 02:00 | NUR ---
Patient stated, "I can't breathe." O2 sat of 85%. Called Tiago RT, regarding patient's condition. Still on NRB mask @15LPM, placed NC @ 6LPM. Coached patient to relax and do deep breathing exercises. O2 sat trending up to 90%. Will continue to monitor closely.
--- NOTE | 2020-12-21 04:00 | NUR ---
Patient refused to be clean and stated, "I can't breathe." O2 sat 94%, HR 74, BP 138/79, RR 25. No signs of distress noted.
[2020-12-21] MEDS: DEXAMETHASONE 4 MG TABLET PO SCH (06:01)
[2020-12-21] MEDS: PANTOPRAZOLE SODIUM 40 MG TABLET.DR PO SCH (06:01)
--- NOTE | 2020-12-21 06:30 | NUR ---
Wasted Decadron 6mg tablets and protonix 40mg tablet.
--- NOTE | 2020-12-21 06:30 | NUR ---
Patient is requesting to change his PO meds to IV. Spoke to Dr Mistry regarding patient's request, with new orders. Noted and carried out.
[2020-12-21] MEDS ORDERED: DEXAMETHASONE SOD PHOSPHATE 4 MG INJ IV SCH (07:00)
--- NOTE | 2020-12-21 07:06 | NUR ---
Patient is on semi rodriguez's position, on NRB mask @15LPM, no signs of distress noted, O2 sat 96%. With the same IVF infusing @TKO. Left chest tube in place with minimal fluid collection less than 5cc at this time. VSS.
[2020-12-21 08:01] LABS: HEMATOCRIT 46.1 % (36.7-47.1); MEAN CORPUSCULAR VOLUME 99.6 fL (73.0-96.2); PLATELET COUNT (AUTO) 142 K/uL (152-348)
[2020-12-21 08:03] LABS: CREATININE 0.8 mg/dL (0.6-1.3); MAGNESIUM 2.3 mg/dL (1.8-2.4); PHOSPHOROUS 3.5 mg/dL (2.5-4.9); POTASSIUM 4.4 mmol/L (3.5-5.1)
[2020-12-21] MEDS: DEXAMETHASONE SOD PHOSPHATE 4 MG INJ IV SCH ×2 (08:34→16:49)
[2020-12-21] MEDS: ASCORBIC ACID 500 MG TABLET PO SCH (08:34)
[2020-12-21] MEDS: CHOLECALCIFEROL 1,000 UNIT TABLET PO SCH (08:34)
[2020-12-21] MEDS: ASPIRIN 81 MG TAB.CHEW PO SCH (08:34)
[2020-12-21] MEDS: GLUCERNA SHAKE 237 ML CAN PO SCH ×3 (08:35→16:47)
[2020-12-21] MEDS: ACETAMINOPHEN 325 MG TABLET PO PRN (09:16)
--- NOTE | 2020-12-21 17:56 | NUR ---
1753pm: Dr Hall paged re: patient c/o "dryness" to nose despite frequent use of prn saline sprays. More humidified oxygen was requested from respiratory therapist, pending callback from Dr Hall.
--- NOTE | 2020-12-21 19:45 | NUR ---
ROUNDS MADE PATIENT IN BED AAOX4/MAEX4,TOLERATING O2 AT 15 LITERS NRM 100% + 6 LITERS NASAL CANNULA WITH HUMIDIFIER ,SATURATION 97 % RR 23. HOB UP . CHEST TUBE PATENT TO 20 WATER SEAL TO CONTINUOS SUCTION . DRESSING SITE REINFORCE . SR ON THE HEART MONITOR .
[2020-12-21] MEDS: ENOXAPARIN SODIUM 40 MG/0.4 ML DISP.SYRIN SQ SCH (20:05)
[2020-12-21] MEDS: HYDROCODONE/APAP 5-325MG TABLET PO PRN (21:21)
--- NOTE | 2020-12-21 21:21 | NUR ---
Elizabeth given c/o pain left chest tube site .
--- NOTE | 2020-12-21 21:30 | NUR ---
PATIENT COUSIN MELCHOR CAME AND HELP WITH PM CARE ,BATH PATIENT AND CHANGED SOILED LINENS AND GOWN . ORAL CARE ASSISTED .
[2020-12-22] VITALS (26 sets, daily range): BP systolic 104–164; BP diastolic 60–112
[2020-12-22] MEDS: MORPHINE SULFATE 2 MG/1 ML DISP.SYRIN IV PRN ×3 (01:51→22:11)
[2020-12-22] MEDS: DEXAMETHASONE SOD PHOSPHATE 4 MG INJ IV SCH ×3 (01:51→17:16)
--- NOTE | 2020-12-22 02:10 | NUR ---
PRN PAIN MEDICATION MORPHINE GIVEN C/O PAIN REQUEST FOR PAIN TO HIS LEFT SIDE OF THE CHEST CHEST TUBE SITE .
[2020-12-22 07:04] LABS: MEAN CORPUSCULAR HEMOGLOBIN 34.3 uug (23.8-33.4); MEAN CORPUSCULAR VOLUME 100.6 fL (73.0-96.2); PLATELET COUNT (AUTO) 110 K/uL (152-348)
--- NOTE | 2020-12-22 07:30 | NUR ---
Received patient from [facility] nurse ,patient had urine all over bed and appeared to be in some emotional distress. Patient cleaned up, inserted lemus, cleansed patient and placed SCD's on, and repositioned patient. Patient in sinus rhythm ,hemodynamically stable, afebrile. Patient on nonrebreather and nasal cannula 6L saturation 81%.
[2020-12-22 07:49] LABS: CREATININE 0.8 mg/dL (0.6-1.3); MAGNESIUM 2.5 mg/dL (1.8-2.4); PHOSPHOROUS 3.3 mg/dL (2.5-4.9); POTASSIUM 4.7 mmol/L (3.5-5.1)
--- NOTE | 2020-12-22 08:15 | NUR ---
Contacted Dr. Hall to inform him of new pneumothorax on the right side.
[2020-12-22] MEDS: ASCORBIC ACID 500 MG TABLET PO SCH (09:00)
[2020-12-22 09:01] LABS: ABG BASE EXCESS 1.5 mmol/L; ABG HCO3 24.5 mmol/L; ABG PCO2 34.5 mmHg (35.0-45.0); ABG PO2 50.7 mmHg (75.0-100.0); ABG SITE LEFT RADIAL; ABG TOTAL HEMOGLOBIN 16.8 G/dL (13.5-18.0); COHb 0.5 % (0.5-1.5); MetHb 0.3 % (0.0-1.5); O2Hb 85.7 % (94.0-97.0)
--- NOTE | 2020-12-22 09:15 | NUR ---
Contacted Dr. Sarah's office to request consult for chest tube insertion as ordered by Dr. Hall.
[2020-12-22 09:27] LABS: *BILIRUBIN,URIN NEGATIVE (NEGATIVE); *CLARITY,URINE CLEAR (CLEAR); *COLOR,URINE YELLOW (YELLOW); *KETONES,URINE NEGATIVE (NEGATIVE); *UROBILINOGEN,URINE 0.2 E.U./dl (NORMAL); LEUKOCYTE ESTERASE ,URINE NEGATIVE (NEGATIVE); NITRITE, URINE NEGATIVE (NEGATIVE); UGLUCOSE NEGATIVE (NEGATIVE)
[2020-12-22 09:32] LABS: *BLOOD, URINE TRACE (NEGATIVE)
[2020-12-22] MEDS: ASPIRIN 81 MG TAB.CHEW PO SCH (10:16)
[2020-12-22] MEDS: CHOLECALCIFEROL 1,000 UNIT TABLET PO SCH (10:17)
[2020-12-22] MEDS: GLUCERNA SHAKE 237 ML CAN PO SCH ×3 (10:18→17:17)
[2020-12-22] MEDS: HYDROCODONE/APAP 5-325MG TABLET PO PRN ×2 (12:56→20:35)
[2020-12-22 15:19] LABS: BACTERIA,URINE MODERATE /HPF (NONE SEEN); RBC,URINE 0-3 /HPF (0-3); SQUAMOUS EPITHELIAL CELL,UR FEW /HPF (NONE SEEN); WBC,URINE 0-3 /HPF (0-3)
[2020-12-22 15:20] LABS: URINE AMORPHOUS URATE MODERATE /HPF
--- NOTE | 2020-12-22 18:15 | NUR ---
Dr Lamb at bedside to insert right side chest tube.
--- NOTE | 2020-12-22 18:31 | NUR ---
Patient tolerated chest tube insertion without incident, premedicated with Morphine.
[2020-12-22] MEDS: ENOXAPARIN SODIUM 40 MG/0.4 ML DISP.SYRIN SQ SCH (20:19)
--- NOTE | 2020-12-22 22:25 | NUR ---
CALLED ER MD AND SPOKED WITH DR: MASHA ,INFORMED HIM PATIENT IN BED 1 SATURATION LOW 80 AND PATIENT SAYING I CANNOT BREATH AND PATIENT VERY RESTLESS AND VERY AGITATED ,PAGE RESPIRATORY THERAPIST SPOKED WITH MARCO HE IS COMING .
--- NOTE | 2020-12-22 22:35 | NUR ---
DR:ATTILA INTUBATED PATIENT ETT 7.5 -23 VENT SETTINGS AC20/400/100% /PEEP 5. STARTED ON PROPOFOL FOR SEDATION FOLLOW PROTOCOL .
[2020-12-22] MEDS ORDERED: SUCCINYLCHOLINE CHLORIDE 200 MG/10 ML VIAL IV ONE (22:45)
[2020-12-22] MEDS ORDERED: ETOMIDATE 20 MG/10 ML VIAL IV ONE (22:45)
[2020-12-22] MEDS: PROPOFOL 100 ML IV PRN (23:02)
--- NOTE | 2020-12-22 23:07 | NUR ---
PATIENT ON FUENTES VENT ,INTUBATED APPROX. 22:30 BY ER DOCTOR, WITH GLIDE A SCOPE WITH ANKUSH #4 BLADE FOR INTUBATION PROCEDURE; WITH ANCHOR FAST IN PLACE AND SECURED, ET- 7.5 LIP WITH CURRENT VENT SETTINGS, A/C 20, VT 400ML, 100%, PEEP 5, F/B ABG , AMBU BAG AT BEDSIDE, MAY SLIGHTLY WAKING UP, MAY NEED SEDATION. Arianna COLE RCP Addendum: 12/22/20 at 2312 by MARCO COLE RT Amended: Links added.
--- NOTE | 2020-12-22 23:45 | NUR ---
CALLED PATIENT SISTER AND SPOKED WITH EMIR INFORMED PATIENT GOT INTUBATED C/O RESPIRATORY DISTRESS AND NOW PATIENT IS INTUBATED AND SHE IS MORE THAN WELCOME TO COME AND SEE PATIENT .
[2020-12-23] VITALS (56 sets, daily range): BP systolic 64–137; BP diastolic 45–112
--- NOTE | 2020-12-23 | NUR ---
CALLED XRAY - CHEST XRAY NOT RESULTED YET ,KEY HOLDER SAID HE WILL CALL THE RADIOLOGIST .
--- NOTE | 2020-12-23 00:17 | NUR ---
CALLED XRAY FOR RESULTS SPOKED WITH [employer]IM[employer] AND INFORMED RESULTS NOT IN YET HE SAID HE WILL CALL THEM AGAIN .
[2020-12-23 00:28] LABS: ABG HCO3 20.7 mmol/L; ABG PCO2 71.2 mmHg (35.0-45.0); ABG PH 7.081 (7.350-7.450); ABG PO2 45.2 mmHg (75.0-100.0); ABG SITE RIGHT RADIAL; ABG TOTAL HEMOGLOBIN 17.4 G/dL (13.5-18.0); COHb 0.8 % (0.5-1.5); O2Hb 62.5 % (94.0-97.0); VENT MODE VENT - A/C; VT, ABG 400 mL
--- NOTE | 2020-12-23 00:44 | NUR ---
CALLED PULMONARY MD AND SPOKED WITH PATRIC DICTATED ABG AND CHEST XRAY RESULTS ,WITH ORDER TO INCREASE TV TO 550 AND PEEP TO 10. ABG IN AM.
[2020-12-23] MEDS: DEXAMETHASONE SOD PHOSPHATE 4 MG INJ IV SCH ×3 (01:23→18:01)
--- NOTE | 2020-12-23 01:30 | NUR ---
patient 2 sister and 2 brother came and updated with patient condition .
[2020-12-23] MEDS: PROPOFOL 100 ML IV PRN ×3 (01:41→08:55)
--- NOTE | 2020-12-23 02:34 | NUR ---
VENT CHANGES MADE, A/C 20, VT 550ML, PEEP 10 , FIO2 @ 100% . D COLE COLOR CONTROL OPERATOR
--- NOTE | 2020-12-23 03:10 | NUR ---
replaced Ramsay catheter its leaking inserted a bigger size sami no.18. inserted NGT via the left nare .,will verify by xray .
--- NOTE | 2020-12-23 04:00 | NUR ---
called [facility] MD:c/o patients low bp . started patient on Levophed drip .
[2020-12-23] MEDS: NOREPINEPHRINE BITARTRATE 8 MG in IV NORMAL SALINE 242 ML IV PRN ×2 (04:10→12:09)
[2020-12-23 05:19] LABS: HEMATOCRIT 47.5 % (36.7-47.1); MEAN CORPUSCULAR HEMOGLOBIN 34.4 uug (23.8-33.4); MEAN CORPUSCULAR VOLUME 101.9 fL (73.0-96.2); PLATELET COUNT (AUTO) 105 K/uL (152-348)
[2020-12-23 05:22] LABS: CREATININE 1.8 mg/dL (0.6-1.3); MAGNESIUM 3.1 mg/dL (1.8-2.4); POTASSIUM 5.4 mmol/L (3.5-5.1)
--- NOTE | 2020-12-23 05:32 | NUR ---
right chest tube patent output 50 ml.serosanguineous . left chest tube patent no output .
[2020-12-23 06:14] LABS: BAND % (MANUAL) 2 % (0-10); LYMPHOCYTES % (MANUAL) 4 % (20-40); MONOCYTES % (MANUAL) 2 % (2-10); NEUTROPHILS % (MANUAL) 92 % (42-75)
--- NOTE | 2020-12-23 07:46 | NUR ---
RECEIVED PT ON CONTINUOUS MECHANICAL VENTILATION VIA FUENTES VENTILATOR. CURRENT SETTINGS ARE AC 20, VT 550, PEEP +10, FIO2 100%. NO CHANGES MADE AT THIS TIME. ABG TO BE DONE AT 0800. PT IS ORALLY INTUBATED WITH 7.5 ETT APPROX. 24CM AT THE LIP. ORAL CARE, SUCTION, AND HME CHANGED. ETT READJUSTED TO PREVENT MOUTH BREAKDOWN. AMBU BAG IS AT BEDSIDE. VENT IS PLUGGED INTO RED EMERGENCY OUTLET.
[2020-12-23 08:15] LABS: ABG BASE EXCESS -6.5 mmol/L; ABG HCO3 20.3 mmol/L; ABG PCO2 44.7 mmHg (35.0-45.0); ABG PH 7.275 (7.350-7.450); ABG PO2 53.5 mmHg (75.0-100.0); ABG SITE LEFT RADIAL; ABG TOTAL HEMOGLOBIN 17.2 G/dL (13.5-18.0); COHb 0.8 % (0.5-1.5); MetHb 0.2 % (0.0-1.5); O2Hb 84.7 % (94.0-97.0); VENT MODE VENT - A/C; VT, ABG 550 mL
--- NOTE | 2020-12-23 08:25 | NUR ---
Dr. Hall received ABG results and orderd rate change to 25.
[2020-12-23] MEDS: GLUCERNA SHAKE 237 ML CAN PO SCH (09:00)
--- NOTE | 2020-12-23 09:00 | NUR ---
VENT CHANGES MADE PER MD ORDER. NEW SETTINGS ARE AC 25, VT 550, PEEP +10, FIO2 100%. WILL CONTINUE TO MONITOR. NURSE AWARE OF CHANGE.
[2020-12-23] MEDS: ASPIRIN 81 MG TAB.CHEW PO SCH (09:04)
[2020-12-23] MEDS: CHOLECALCIFEROL 1,000 UNIT TABLET PO SCH (09:04)
[2020-12-23] MEDS: ASCORBIC ACID 500 MG TABLET PO SCH (09:04)
[2020-12-23] MEDS: ACETAMINOPHEN 325 MG TABLET PO PRN (09:54)
--- NOTE | 2020-12-23 10:19 | NUR ---
Late entry: Requested PICC line as patient is needing additional medications and frequent draws. Received orders and notified supervisor shuttle veneering. Notified physician of patients fever and requested lactic acid and blood cultures. Orders received.
[2020-12-23] MEDS ORDERED: IV D5/ 0.9% NACL 1,000 ML IV PRN (11:00)
[2020-12-23] MEDS ORDERED: MEROPENEM 0.5 G in IV NORMAL SALINE 50 ML IV SCH (11:30)
[2020-12-23] MEDS: MIDAZOLAM HCL 50 MG in IV NORMAL SALINE 40 ML IV PRN ×2 (12:10→15:42)
--- NOTE | 2020-12-23 12:14 | NUR ---
Late Entry: lactic acid results notified to Dr. Bowden, Received orders to start NS at 75cc/hr, but cancelled when notified that Metal Model Maker added fluids 80cc/hr for renal failure. Recheck at 5pm.
[2020-12-23] MEDS ORDERED: MEROPENEM 1 G in IV NORMAL SALINE 100 ML IV ONE (12:30)
[2020-12-23] MEDS: FENTANYL CITRATE/PF 1,000 MCG in IV NORMAL SALINE 80 ML IV PRN ×2 (12:56→22:47)
[2020-12-23] MEDS: IV NS 1000 ML 1,000 ML IV PRN (12:56)
[2020-12-23] MEDS: NUTRISOURCE FIBER 4 GM PACKET GT SCH ×2 (13:00→17:00)
[2020-12-23] MEDS: VANCOMYCIN IV 1,250 MG in IV DEXTROSE 5% 250 ML IV SCH (13:52)
[2020-12-23 17:45] LABS: BILIRUBIN,DIRECT 0.5 mg/dL (0.0-0.2); BILIRUBIN,TOTAL 1.1 mg/dL (0.2-1.0)
[2020-12-23] MEDS: ENOXAPARIN SODIUM 40 MG/0.4 ML DISP.SYRIN SQ SCH (20:18)
--- NOTE | 2020-12-23 23:17 | NUR ---
PATIENT ON CONT FUENTES VENT WITH 7.5 ET/TUBE IN PLACE AND SECURED WITH ANCHOR FAST, ROTATE Q2 HOURS, WITH CURRENT VENT SETTINGS, A/C 25, VT 550ML, 100% , PEEP 10 , PT DOES ASSIST AT TIMES, GOOD COUGH EFFORT, SLIGHTLY PINKISH TINGE SECRETIONS, NO VENT CHANGES MADE DURING SHIFT, SAT 90-92% APPROX, AMBU BAG AT BEDSIDE, ALL VENT ALARMS GOOD, VENT PLUGGED INTO RED WALL OUTLET. Arianna BYRNESP Addendum: 12/23/20 at 2320 by MARCO COLE RT Amended: Links added.
[2020-12-23] MEDS: MEROPENEM 1 G in IV NORMAL SALINE 100 ML IV SCH (23:22)
[2020-12-24] VITALS (24 sets, daily range): BP systolic 114–154; BP diastolic 55–105
[2020-12-24] MEDS: MIDAZOLAM HCL 50 MG in IV NORMAL SALINE 40 ML IV PRN ×3 (01:01→20:51)
--- NOTE | 2020-12-24 02:00 | NUR ---
Patient desaturating, showing signs of respiratory distress, rate over vent at 36, deep abdominal breathing. RT in unit. Fentanyl drip increased to 75mcg/hr. Patient seemed to respond well to the increased fentanyl rate. Breathing decreased and oxygen saturation returned to the 88-92% range.
[2020-12-24] MEDS: DEXAMETHASONE SOD PHOSPHATE 4 MG INJ IV SCH ×3 (02:12→17:56)
[2020-12-24] MEDS: IV NS 1000 ML 1,000 ML IV PRN (06:02)
[2020-12-24 06:03] LABS: MEAN CORPUSCULAR HEMOGLOBIN 34.5 uug (23.8-33.4); MEAN CORPUSCULAR VOLUME 102.1 fL (73.0-96.2)
[2020-12-24 06:07] LABS: CREATININE 3.1 mg/dL (0.6-1.3); MAGNESIUM 3.2 mg/dL (1.8-2.4); POTASSIUM 5.1 mmol/L (3.5-5.1)
[2020-12-24 06:26] LABS: PLATELET COUNT (AUTO) 40 K/uL (152-348)
--- NOTE | 2020-12-24 06:50 | NUR ---
Patient remains sedated and orally intubated, Vent setting remain AC 25, Vt 550, FiO2 100%, PEEP 10, O2 SAT fluctuated with an episode of desaturation, responded well to increase in fentanyl drip, with saturation increasing to 94-97%. Patient does not tolerate being manipulated and moved, as this increases his activity and respiratory rate, possibly need to consider paralytic agent to keep him immobile as he still is able to move and reach for his ETT. BP remained stable during the night, Levophed remains off. NGT feeding Vital AF started and currently at 20mL/hr, tolerating fairly. Chest tubes remain patent, with good suction in the pleur-evac containers.
--- NOTE | 2020-12-24 07:15 | NUR ---
Pt received on CMV via [place] vent. Pt received on given settings of AC 25, Vt 550, PEEP +10, Fi02 100% Pt is intubated with 7.5 ETT @ approx 24cm at the lip. Oral care done and igor well. ABG order to be done at 9am. Alarms on and audible. Ambubag @ bed side. Ventilator plugged in red outlet. ETT readjusted and igor well. Will continue to monitor throughout shift.
[2020-12-24] MEDS: VANCOMYCIN IV 1,250 MG in IV DEXTROSE 5% 250 ML IV SCH (07:24)
[2020-12-24] MEDS: LORAZEPAM 2 MG/1 ML VIAL IV PRN ×3 (08:33→21:59)
[2020-12-24] MEDS: ASCORBIC ACID 500 MG TABLET PO SCH (08:34)
[2020-12-24] MEDS: CHOLECALCIFEROL 1,000 UNIT TABLET PO SCH (08:34)
[2020-12-24] MEDS: ASPIRIN 81 MG TAB.CHEW PO SCH (08:34)
[2020-12-24] MEDS: NUTRISOURCE FIBER 4 GM PACKET GT SCH ×3 (08:34→17:57)
[2020-12-24 08:58] LABS: ABG BASE EXCESS -6.5 mmol/L; ABG HCO3 20.1 mmol/L; ABG PCO2 43.5 mmHg (35.0-45.0); ABG PH 7.282 (7.350-7.450); ABG PO2 79.7 mmHg (75.0-100.0); ABG SITE LEFT RADIAL; ABG TOTAL HEMOGLOBIN 15.5 G/dL (13.5-18.0); COHb 0.2 % (0.5-1.5); MetHb 0.3 % (0.0-1.5); O2Hb 94.1 % (94.0-97.0); VENT MODE VENT - A/C; VT, ABG 550 mL
[2020-12-24] MEDS: FENTANYL CITRATE/PF 1,000 MCG in IV NORMAL SALINE 80 ML IV PRN ×2 (09:59→20:47)
--- NOTE | 2020-12-24 10:51 | NUR ---
Dr. Bowden in the unit, discussed kidney function and orders received to insert vascular catheter. Informed turn supervisor.
[2020-12-24] MEDS: MEROPENEM 1 G in IV NORMAL SALINE 100 ML IV SCH ×2 (12:09→23:46)
[2020-12-24] MEDS ORDERED: ARGATROBAN IV PRN (12:15)
[2020-12-24] MEDS ORDERED: NORMAL SALINE IV PRN (12:15)
[2020-12-24 12:56] LABS: BILIRUBIN,DIRECT 0.4 mg/dL (0.0-0.2); BILIRUBIN,TOTAL 0.8 mg/dL (0.2-1.0); TOTAL PROTEIN, SERUM 6.2 g/dL (6.4-8.2)
[2020-12-24 13:21] LABS: HEMATOCRIT 46.4 % (36.7-47.1); MEAN CORPUSCULAR HEMOGLOBIN 34.1 uug (23.8-33.4); MEAN CORPUSCULAR VOLUME 102.7 fL (73.0-96.2)
[2020-12-24 13:23] LABS: PLATELET COUNT (AUTO) 40 K/uL (152-348)
[2020-12-24] MEDS: ACETAMINOPHEN 325 MG TABLET PO PRN (17:58)
[2020-12-24] MEDS: NORMAL SALINE IV PRN (18:31)
[2020-12-24] MEDS: ARGATROBAN IV PRN (18:31)
--- NOTE | 2020-12-24 20:00 | NUR ---
ETT 7.5 -23CM VENT SETTING AC 25/550/100 PEEP 10 TOLERATING SATURATION 95% RR 27.ORAL CARE DONE SUCTION PATIENT VIA ETT AND VIA MOUTH.RIGHT AND LEFT CHEST TUBE TO 20 CM CONTINUOS LOW WALL SUCTION .SITE CDI AND NO AIR LEAK .SEDATED ON FENTANYL DRIP AT 100 MCG/HR AND VERSED 7 MG/HR , NO S/S OF BLEEDING PATIENT ON ARGATROBAN DRIP 250MG/250ML WILL FOLLOW PROTOCOL . TF VIA THE NGT ON VITAL AT 20 ML HOUR FLUSHED NGT PATENT . HOB UP AND ASPIRATION PRECAUTION .
--- NOTE | 2020-12-24 21:59 | NUR ---
PATIENT NOTED REACHING TO THE ETT ABLE TO MOVED LEFT HAND , ABDOMINALLY BREATHING RR 35 ,GIVEN ATIVAN FOR AGITATION . ORIENTED PATIENT AND INFORMED HIS INTUBATED AND NOT TO REMOVED ETT .
--- NOTE | 2020-12-24 22:00 | NUR ---
TURNED AND REPOSITION PATIENT OFFLOADED BACK WITH PILLOWS AND HEELS OFF BED WITH PILLOWS,SCDS USED TO BILATERAL LEGS .
--- NOTE | 2020-12-24 22:00 | NUR ---
increase tube feedings to 30 ml /hours . tolerating TF .
[2020-12-25] VITALS (24 sets, daily range): BP systolic 86–141; BP diastolic 55–87
--- NOTE | 2020-12-25 01:00 | NUR ---
CALLED LAB SPOKED WITH GUNNAR DIETETIC TECHNICIAN REGISTERED, PATIENT FOR APTT PATIENT ON ARGATROBAN DRIP .
--- NOTE | 2020-12-25 01:15 | NUR ---
JENNY AT B/S FOR HEMODIALYSES CATHETER PLACEMENT .
[2020-12-25] MEDS: DEXAMETHASONE SOD PHOSPHATE 4 MG INJ IV SCH ×3 (01:29→17:05)
--- NOTE | 2020-12-25 03:45 | NUR ---
AM CARE DONE AND BATH PATIENT CHANGED SOILED LINENS AND GOWN . PRATT CARE DONE AND ORAL CARE DONE .
--- NOTE | 2020-12-25 04:05 | NUR ---
ANTIQUE REFINISHER AT B/S FOR PATIENT HD , SEE ORDER OF DR: AN .
[2020-12-25 04:30] LABS: HEMATOCRIT 43.2 % (36.7-47.1)
[2020-12-25 04:32] LABS: MEAN CORPUSCULAR HEMOGLOBIN 33.8 uug (23.8-33.4); MEAN CORPUSCULAR VOLUME 101.7 fL (73.0-96.2)
[2020-12-25 05:19] LABS: PLATELET COUNT (AUTO) 35 K/uL (152-348)
[2020-12-25] MEDS: MIDAZOLAM HCL 50 MG in IV NORMAL SALINE 40 ML IV PRN ×2 (05:45→17:14)
[2020-12-25] MEDS: LORAZEPAM 2 MG/1 ML VIAL IV PRN (06:31)
--- NOTE | 2020-12-25 06:46 | NUR ---
TOTAL FLUID REMOVAL 1000 ML FROM HEMODIALYSIS.PATIENT TOLERATED AND COMPLETED.
[2020-12-25] MEDS: ACETAMINOPHEN 325 MG TABLET PO PRN (08:07)
[2020-12-25] MEDS: NUTRISOURCE FIBER 4 GM PACKET GT SCH ×3 (08:08→17:04)
[2020-12-25] MEDS: CHOLECALCIFEROL 1,000 UNIT TABLET PO SCH (08:09)
[2020-12-25] MEDS: ASPIRIN 81 MG TAB.CHEW PO SCH (08:09)
[2020-12-25] MEDS: ASCORBIC ACID 500 MG TABLET PO SCH (08:09)
[2020-12-25 08:56] LABS: ABG BASE EXCESS -4.4 mmol/L; ABG HCO3 22.5 mmol/L; ABG PCO2 47.8 mmHg (35.0-45.0); ABG PH 7.291 (7.350-7.450); ABG PO2 71.6 mmHg (75.0-100.0); ABG SITE RIGHT RADIAL; ABG TOTAL HEMOGLOBIN 16.1 G/dL (13.5-18.0); COHb 0.6 % (0.5-1.5); MetHb 0.3 % (0.0-1.5); O2Hb 92.9 % (94.0-97.0); VENT MODE VENT - A/C; VT, ABG 550 mL
[2020-12-25] MEDS ORDERED: VANCOMYCIN IV 1,000 MG in IV DEXTROSE 5% 250 ML IV SCH (11:00)
[2020-12-25] MEDS: MEROPENEM 1 G in IV NORMAL SALINE 100 ML IV SCH ×2 (11:24→23:55)
[2020-12-25 11:39] LABS: PHOSPHOROUS 6.8 mg/dL (2.5-4.9); POTASSIUM 5.4 mmol/L (3.5-5.1)
[2020-12-25] MEDS: NORMAL SALINE IV PRN (11:44)
[2020-12-25] MEDS: FENTANYL CITRATE IV PRN (11:44)
[2020-12-25] MEDS ORDERED: VANCOMYCIN IV 500 MG in IV DEXTROSE 5% 100 ML IV PRN (12:30)
[2020-12-25 12:31] LABS: VANCOMYCIN,RANDOM 18.3 ug/mL (18.0-26.0)
[2020-12-25] MEDS ORDERED: VANCOMYCIN IV 500 MG in IV DEXTROSE 5% 100 ML IV ONE (13:30)
[2020-12-26] VITALS (54 sets, daily range): BP systolic 67–147; BP diastolic 35–80
[2020-12-26] MEDS: DEXAMETHASONE SOD PHOSPHATE 4 MG INJ IV SCH ×3 (00:05→17:26)
[2020-12-26] MEDS: NORMAL SALINE IV PRN ×3 (01:17→09:44)
[2020-12-26] MEDS: FENTANYL CITRATE IV PRN ×2 (01:17→09:40)
[2020-12-26] MEDS: MIDAZOLAM HCL 50 MG in IV NORMAL SALINE 40 ML IV PRN ×3 (01:29→20:26)
[2020-12-26] MEDS: IV NORMAL SALINE 250 ML IV PRN ×2 (02:08→21:32)
[2020-12-26 06:38] LABS: HEMATOCRIT 40.2 % (36.7-47.1); MEAN CORPUSCULAR HEMOGLOBIN 34.5 uug (23.8-33.4); MEAN CORPUSCULAR VOLUME 102.9 fL (73.0-96.2)
[2020-12-26 06:54] LABS: BILIRUBIN,TOTAL 1.5 mg/dL (0.2-1.0); POTASSIUM 5.7 mmol/L (3.5-5.1); TOTAL PROTEIN, SERUM 5.7 g/dL (6.4-8.2)
[2020-12-26 07:00] LABS: CREATININE 3.1 mg/dL (0.6-1.3); MAGNESIUM 3.6 mg/dL (1.8-2.4); PHOSPHOROUS 5.7 mg/dL (2.5-4.9); POTASSIUM 5.6 mmol/L (3.5-5.1)
[2020-12-26 07:16] LABS: PLATELET COUNT (AUTO) 30 K/uL (152-348)
[2020-12-26 07:47] LABS: BAND % (MANUAL) 1 % (0-10); LYMPHOCYTES % (MANUAL) 2 % (20-40); MONOCYTES % (MANUAL) 2 % (2-10); MYELOCYTES % 1 % (0-0); NEUTROPHILS % (MANUAL) 94 % (42-75)
[2020-12-26 08:58] LABS: ABG BASE EXCESS -2.7 mmol/L; ABG PCO2 55.5 mmHg (35.0-45.0); ABG PH 7.272 (7.350-7.450); ABG PO2 80.9 mmHg (75.0-100.0); ABG SITE RIGHT RADIAL; ABG TOTAL HEMOGLOBIN 14.2 G/dL (13.5-18.0); COHb 0.5 % (0.5-1.5); MetHb 0.3 % (0.0-1.5); O2Hb 94.4 % (94.0-97.0); VENT MODE VENT - A/C; VT, ABG 550 mL
[2020-12-26] MEDS: ASPIRIN 81 MG TAB.CHEW PO SCH (09:00)
[2020-12-26] MEDS: ASCORBIC ACID 500 MG TABLET PO SCH (09:01)
[2020-12-26] MEDS: CHOLECALCIFEROL 1,000 UNIT TABLET PO SCH (09:01)
[2020-12-26] MEDS: ACETAMINOPHEN 325 MG TABLET PO PRN ×2 (09:01→14:38)
[2020-12-26] MEDS: NUTRISOURCE FIBER 4 GM PACKET GT SCH ×3 (09:01→17:26)
--- NOTE | 2020-12-26 09:36 | NUR ---
Confirmed with Dr. Bowden to continue argatroban as platelets are 30. Received orders to continue.
[2020-12-26] MEDS: ARGATROBAN IV PRN (09:44)
--- NOTE | 2020-12-26 11:30 | NUR ---
Family request for conference via phone. Dr. Bowden discussed in detail patients condition, request for palliative care initiated.
--- NOTE | 2020-12-26 12:40 | NUR ---
Notified Dr. Bowden of fibrinogen level 163 and received orders for 2Units FFP
[2020-12-26] MEDS ORDERED: MEROPENEM 0.5 G in IV NORMAL SALINE 50 ML IV SCH (14:00)
[2020-12-26] MEDS ORDERED: MEROPENEM 1 G in IV NORMAL SALINE 100 ML IV SCH (14:00)
--- NOTE | 2020-12-26 14:30 | NUR ---
Notified Dr. Bowden that patient has a fever. No new orders received.
--- NOTE | 2020-12-26 14:48 | NUR ---
Called Perla to obtain consent for FFP. No response, left message at this time.
[2020-12-26] MEDS ORDERED: VANCOMYCIN IV 1,000 MG in IV DEXTROSE 5% 250 ML IV ONE (15:00)
[2020-12-26] MEDS: NOREPINEPHRINE BITARTRATE 8 MG in IV NORMAL SALINE 242 ML IV PRN (15:35)
--- NOTE | 2020-12-26 21:20 | NUR ---
Update to Rina PAUL GLOST KILN PLACER
[2020-12-27] VITALS (8 sets, daily range): BP systolic 90–113; BP diastolic 42–73
[2020-12-27] MEDS: DEXAMETHASONE SOD PHOSPHATE 4 MG INJ IV SCH (01:07)
[2020-12-27 05:56] LABS: HEMATOCRIT 30.4 % (36.7-47.1); MEAN CORPUSCULAR HEMOGLOBIN 34.4 uug (23.8-33.4); MEAN CORPUSCULAR VOLUME 100.7 fL (73.0-96.2)
[2020-12-27 05:57] LABS: BILIRUBIN,TOTAL 1.2 mg/dL (0.2-1.0); CREATININE 3.4 mg/dL (0.6-1.3); MAGNESIUM 3.2 mg/dL (1.8-2.4); PHOSPHOROUS 7.9 mg/dL (2.5-4.9); TOTAL PROTEIN, SERUM 5.2 g/dL (6.4-8.2)
[2020-12-27 06:06] LABS: POTASSIUM 6.4 mmol/L (3.5-5.1)
[2020-12-27 06:07] LABS: PLATELET COUNT (AUTO) 31 K/uL (152-348)
[2020-12-27] MEDS ORDERED: SODIUM POLYSTYRENE SULFONATE 15 G/60 ML LIQUID UDC NG ONE (06:45)
[2020-12-27] MEDS ORDERED: NOREPINEPHRINE BITARTRATE 4 MG/4 ML VIAL IV ONE (08:06)
--- NOTE | 2020-12-27 08:07 | NUR ---
Patient apneic for 5minutes. Pupils fixed and dilated. No audible heart tones, breath sound for 1 minute. No palpable pulses for 1 minute. No corneal reflexes. Patient pronounced at 0807
--- NOTE | 2020-12-27 08:10 | NUR ---
At the time of expiration staff member Rayna Brewer was in contact and communicating with family members, notifying and updating them over the phone at this moment awaiting for family to arrive.
--- NOTE | 2020-12-27 08:23 | NUR ---
[employer] contacted at and spoke with air lift operator Edward report given and as informed pt. r/o as a donor due to Covid diagnoses and complications with [id number].
--- NOTE | 2020-12-27 08:31 | NUR ---
Attending Dr. Johnston called and notified of pt's expiration time. Clean Up Person Kim notified. Cardiology Dr. Martinez, and pulmonary service, Dr. Hall notified as well.
--- NOTE | 2020-12-27 09:00 | NUR ---
Pt's family members, sister Laurel Duncan legal next of kin and daughters, and extended family at bedside this also include our staff member Mireya. Shaikh
--- NOTE | 2020-12-27 09:31 | NUR ---
All pt's belongings retuned to Ms. Perla Barragan, belongings form signed by her and belongings returned to her by our staff and pt's family member Rayna Shaikh
--- NOTE | 2020-12-27 11:03 | NUR ---
Post-mortem care provided to pt. and body will be taken down to the morgue due to covid-19 precautions. I spoke with Chloé from [facility], and I was informed they will picker and packer the body after 2 hours. Release of remains was signed by Perla Barragan, diseased sister. copies of the legal documents made and left in file. Addendum: 12/27/20 at 1118 by EMILIANA POTTS RN At this time Ms. Perla Barragan requested to have the services of social studies teacher to help in the process to have social security benefit services for needs activated. A call to Leila Eaton called and informed of requested and as stated "I'll meet with them within the next 15min. have them wait for me at the lobby". Ms. Duncan informed and currently waiting for Ms. Leila Suazo
--- NOTE | 2020-12-27 15:13 | NUR ---
Clinical [employer] Room Attendant Note [employer] spoke with Perla [phone], to inform her that in order to active patient's social security benefits, she must contact their local social security administration office. Informed Perla, that the social security administration office will help them process benefits.
[2020-12-27 15:23] LABS: BAND % (MANUAL) 3 % (0-10); LYMPHOCYTES % (MANUAL) 2 % (20-40); MONOCYTES % (MANUAL) 3 % (2-10); NEUTROPHILS % (MANUAL) 92 % (42-75)
[2020-12-28 01:06] LABS: HEPATITIS B SURFACE AG Negative (Negative)
[2020-12-28 01:06] LABS: HEPATITIS A AB, IgM Negative (Negative); HEPATITIS A AB, TOTAL Positive (Negative); HEPATITIS B SURFACE AG Negative (Negative); HEPATITIS Be ANTIGEN Negative (Negative)
== END 2020-12-27 11:29 | DRG 720 ==
LOC: ER 14:00 → TRANSITION 19:09 → TELE3 20:45 → CCU 12-19 19:39
PROVIDERS: ADMIT Internal Medicine; ATTEND Internal Medicine
PROC: XW033E5 Introduction of Remdesivir Anti-infective into Peripheral Vein, Percutaneous Approach, New Technology Group 5 (ICD-10-PCS; principal; 2020-12-08)
PROC: XW033H5 Introduction of Tocilizumab into Peripheral Vein, Percutaneous Approach, New Technology Group 5 (ICD-10-PCS; 2020-12-12)
PROC: 05H533Z Insertion of Infusion Device into Right Subclavian Vein, Percutaneous Approach (ICD-10-PCS; 2020-12-19)
PROC: 0W9B30Z Drainage of Left Pleural Cavity with Drainage Device, Percutaneous Approach (ICD-10-PCS; 2020-12-19)
PROC: B546ZZA Ultrasonography of Right Subclavian Vein, Guidance (ICD-10-PCS; 2020-12-19)
PROC: 0W9930Z Drainage of Right Pleural Cavity with Drainage Device, Percutaneous Approach (ICD-10-PCS; 2020-12-22)
PROC: 5A1955Z Respiratory Ventilation, Greater than 96 Consecutive Hours (ICD-10-PCS; 2020-12-22)
PROC: 0BH17EZ Insertion of Endotracheal Airway into Trachea, Via Natural or Artificial Opening (ICD-10-PCS; 2020-12-22)
PROC: 02HV33Z Insertion of Infusion Device into Superior Vena Cava, Percutaneous Approach (ICD-10-PCS; 2020-12-23)
PROC: B548ZZA Ultrasonography of Superior Vena Cava, Guidance (ICD-10-PCS; 2020-12-23)
PROC: 5A1D70Z Performance of Urinary Filtration, Intermittent, Less than 6 Hours Per Day (ICD-10-PCS; 2020-12-24)
PROC: 06HY33Z Insertion of Infusion Device into Lower Vein, Percutaneous Approach (ICD-10-PCS; 2020-12-25)
PROC: 30233K1 Transfusion of Nonautologous Frozen Plasma into Peripheral Vein, Percutaneous Approach (ICD-10-PCS; 2020-12-26)
DX: A41.89 Other specified sepsis (principal); J12.82 Pneumonia due to coronavirus disease 2019; N17.0 Acute kidney failure with tubular necrosis; J96.01 Acute respiratory failure with hypoxia; J96.02 Acute respiratory failure with hypercapnia; R65.21 Severe sepsis with septic shock; U07.1 COVID-19; D75.82 Heparin induced thrombocytopenia (HIT); E87.1 Hypo-osmolality and hyponatremia; E86.0 Dehydration; I21.A1 Myocardial infarction type 2; J93.9 Pneumothorax, unspecified; D64.9 Anemia, unspecified; I51.4 Myocarditis, unspecified; F41.9 Anxiety disorder, unspecified; I10 Essential (primary) hypertension; F32.A Depression, unspecified; R74.01 Elevation of levels of liver transaminase levels; Z66 Do not resuscitate; E66.9 Obesity, unspecified; Z68.31 Body mass index [BMI] 31.0-31.9, adult; E87.5 Hyperkalemia
CPT/HCPCS: 36415; 36569; 36600; 70030-TC; 71045; 83605; 83615; 83735; 84100; 84443; 85025; 85520; 85610; 85730; 86140; 86480; 86704; 86705; 86706; 86708; 86709; 86803; 86850; 86900; 86901; 87040; 87070; 87077; 87086; 87328; 87340; 87350; 90937; 93005; 93307; 94002; 94003; 94760; A4217; A4663; A6209; G0378; J0330; J0692; J0696; J0883; J1100; J1650; J2060; J2185; J2250; J2270; J3010; J3262; J3370; J3490; J3535; J7030; J7040; J7042; J7050; J7060; J8540; P9059; U0003